=== PATIENT | female | born 1945 | race Caucasian/White ===

== ENCOUNTER → 2016-04-12 | Outpatient (CLI) | payer OTHER ==
[~2016-04-12] MED LIST: ASTN NAE; BNT10 PO; CHOL4POW PO; ESOM20CA PO; EVS60 PO; LCTX; MISC4CAP PO; MOME50SP5 NAE; NXM/40 PO; VANC5CAP PO
[2016-04-12 16:42] LABS: BASO % 0.3 %; BASO ABS # 0.01 K/uL (0-0.2); COMPLETE YES; EOS % 0.3 %; HEMATOCRIT 38.1 % (37-47); LYMPH % 37.7 %; LYMPH ABS # 1.13 K/uL (1.2-3.4); MEAN CELL VOLUME 97.9 fL (80-100); MEAN CORPUSCULAR HEMOGLOBIN 32.9 pg (25-34); MEAN CORPUSCULAR HGB CONC 33.6 g/dl (32-36); MEAN PLATELET VOLUME 9.8 fL (7.4-10.4); NEUT % 48.7 %; PLATELET COUNT 218 K/uL (130-400); RED BLOOD COUNT 3.89 M/uL (4.2-5.4)
[2016-04-12 17:08] LABS: ALT/SGPT 31 U/L (12-78); BLOOD UREA NITROGEN 20 mg/dl (7-18); BUN/CREATININE RATIO 27.8 (10-20); CALCIUM 8.5 mg/dl (8.5-10.1); CARBON DIOXIDE 27 mmol/L (21-32); CHLORIDE 101 mmol/L (98-107); CHOLESTEROL 194 mg/dl (0-200); CREATININE 0.72 mg/dl (0.60-1.20); GLUCOSE 91 mg/dl (70-99); POTASSIUM 3.6 mmol/L (3.5-5.1); SODIUM 138 mmol/L (136-145)
[2016-04-12 17:11] LABS: ALB/GLOB RATIO 1.1 (0.9-2); ALKALINE PHOSPHATASE 61 U/L (45-117); AST/SGOT 26 U/L (15-37); CHOLESTEROL/HDL RATIO 2.2; HDL CHOLESTEROL 90 mg/dl; LDL CHOLESTEROL CALCULATED 75 mg/dl; TRIGLYCERIDES 147 mg/dl (0-150); VERY LOW DENSITY LIPOPROT CALC 29 mg/dl
[2016-04-12 18:29] LABS: INFLUENZA A PCR Neg for Influ A (NEG); INFLUENZA B PCR POS for Influ B (NEG)
== END | disposition home or self-care (01) ==
LOC: C.LAB1850 16:04
PROVIDERS: ATTEND Family Medicine
DX: R68.89 Other general symptoms and signs (principal); E78.00 Pure hypercholesterolemia, unspecified

== ENCOUNTER → 2016-04-30 | Outpatient (CLI) | payer OTHER ==
[~2016-04-30] MED LIST changes: -ASTN NAE; -BNT10 PO; -CHOL4POW PO; -LCTX; -MOME50SP5 NAE; -NXM/40 PO; -VANC5CAP PO
== END | disposition home or self-care (01) ==
LOC: C.MAMM 08:22
PROVIDERS: ATTEND Family Medicine
DX: Z13.820 Encounter for screening for osteoporosis (principal); M85.851 Other specified disorders of bone density and structure, right thigh; M85.852 Other specified disorders of bone density and structure, left thigh

== ENCOUNTER → 2016-05-17 | Day surgery (SDC) | payer OTHER ==
[2016-04-26 13:43] VITALS: Ht 170.2 cm; Wt 62.3 kg
[~2016-05-17] VITALS: Ht 170.2 cm; Wt 62.3 kg
[~2016-05-17] MED LIST changes: +BUPIVACAINE 0.25% 2.5MG/ML PF 10 ML VIAL INFIL ONE; +IOPAMIDOL INJ 61% 15 ML VIAL ONE; +LIDOCAINE HCL 1% MPF 5 ML VIAL ONE
--- NOTE | 2016-05-17 13:26 | History & Physical Bridge - [place] ---
H&P Re-Evaluation Bridge Note: I have examined the patient, reviewed the History & Physical and in the interval since the performance of the History & Physical I have noted the following changes of clinical significance: No changes noted
[2016-05-17 13:47] VITALS: TEMP 36.6
--- NOTE | 2016-05-17 13:50 | Discharge Instructions ---
Discharge Instructions Date of Service May 17, 2016. Visit Reason for Visit: Sacroiliitis Discharge Discharge Diagnosis / Problem: low back pain Discharge Goals Goal(s): Decrease discomfort, Improve function Activity Recommendations Activity Limitations: resume your previous activity Anesthesia . Post Anesthesia Instructions: If you have had General Anesthesia or IV Sedation: * Do not drive today. * Resume driving when surgeon permits. * Do not make important decisions or sign legal documents today. * Call surgeon for: 1. Temperature elevations greater than 101 degrees F. 2. Uncontrollable pain. 3. Excessive bleeding. 4. Persistent nausea and vomiting. 5. Medication intolerance (nausea, vomiting or rash). * For nausea and vomiting use only clear liquids such as: tea, soda, bouillon until nausea subsides, then gradually increase diet as tolerated. * If you have any concerns or questions, call your surgeon's office. If physician is unavailable and it is an emergency, call 911 or go to the nearest emergency room. . Diet Recommendations Recommended Home Diet: resume previous diet Procedures Procedures Performed: Left Sacroiliac Joint Injection Pending Studies Studies pending at discharge: no Medical Emergencies . Who to Call and When: Medical Emergencies: If at any time you feel your situation is an emergency, please call 911 immediately. . Non-Emergent Contact Non-Emergency issues call your: Specialist . . "Provider Documentation" section prepared by Campbell Dickey.
[2016-05-17 13:58] VITALS: BP 156/84; PULSE 88; O2SAT 96
--- NOTE | 2016-05-17 14:41 | OPERATIVE REPORT ---
DATE OF OPERATION: 05/17/2016 PREOPERATIVE DIAGNOSIS: Left sacroiliitis. POSTOPERATIVE DIAGNOSIS: Same. PROCEDURE: Left sacroiliac joint injection under fluoroscopic guidance. INDICATIONS: The patient is a 70-year-old white female who has been bothered by left sacroiliitis. It is localizing to the left SI joint. She presented for second opinion and I feel that an SI joint injection will provide her with relief. Her examination was consistent with this. PHYSICAL EXAMINATION: Pleasant female seated comfortably. She has tenderness to palpation over the left SI joint. It is worse with extension. She has a positive sacral distraction maneuver, sacral compression maneuver and a Medina maneuver, all on the left. She has normal motor and sensory exam. CONSENT: Verbal and written consent was obtained from the patient. Risks and benefits were reviewed. Risks include, but are not limited to abscess and allergic reaction. The patient wishes to proceed. DESCRIPTION OF PROCEDURE: The patient was taken back to the special procedures room of the [facility], where she was maintained in a prone position. Backside was cleansed with Betadine x3 and a dry sterile dressing was applied. Fluoroscope was used to identify the left SI joint. The overlying skin was then anesthetized with 2.5 mL of lidocaine 1% with a 25-gauge 1.5-inch needle. A 25-gauge 3.5-inch spinal needle was then directed towards the SI joint and entered the joint under fluoroscopic guidance. To confirm placement, a quarter of a mL of Isovue was then injected, which demonstrated intraarticular uptake of the joint. She then underwent injection after negative aspiration of 40 mg of Depo-Medrol and 1.5 mL of bupivacaine 0.25%. Injection was well tolerated. DISPOSITION: 1. The patient is taken out into the discharge recovery area where she will be discharged home once discharge criteria have been met. 2. She will follow up in the [facility] office in 2-4 weeks. I attest to the content of the Intraoperative Record and any orders documented therein. Any exceptio ns are noted below.
== END | disposition home or self-care (01) ==
LOC: X.SURG 12:40
PROVIDERS: ATTEND Physical Medicine & Rehabilitation
DX: M46.1 Sacroiliitis, not elsewhere classified (principal); Z88.2 Allergy status to sulfonamides; Z88.5 Allergy status to narcotic agent

== ENCOUNTER → 2016-08-01 | Outpatient (CLI) | payer OTHER ==
[~2016-08-01] MED LIST changes: -BUPIVACAINE 0.25% 2.5MG/ML PF 10 ML VIAL INFIL ONE; -IOPAMIDOL INJ 61% 15 ML VIAL ONE; -LIDOCAINE HCL 1% MPF 5 ML VIAL ONE
--- NOTE | 2016-08-01 13:28 | MAMMOGRAPHY REPORT ---
BILATERAL DIGITAL SCREENING MAMMOGRAM WITH CAD: 08/01/2016 CLINICAL HISTORY: Routine screening. Patient has no complaints. TECHNIQUE: Current study was also evaluated with a Computer Aided Detection (CAD) system. Bilateral CC and MLO views were obtained. COMPARISON: Comparison is made to exams dated: 07/26/2015 mammogram, 07/20/2014 mammogram, 06/24/2012 mamm ogram, 06/19/2011 mammogram, 06/13/2010 mammogram, and 06/25/2013 mammogram - [facility] . BREAST COMPOSITION: The tissue of both breasts is heterogeneously dense, which may obscure small mas ses. FINDINGS: No suspicious masses, calcifications, or areas of architectural distortion are noted in ei ther breast. There has been no significant interval change compared to prior exams. IMPRESSION: ACR BI-RADS CATEGORY 1: NEGATIVE There is no mammographic evidence of malignancy. A 1 year screening mammogram is recommended. The pa tient will receive written notification of the results. Approximately 10% of breast cancers are not detected with mammography. A negative mammographic report should not delay biopsy if a clinically suggestive mass is present. Hyacinth Moyer M.D. /:08/01/2016 11:58:04 Sexual Assault Counselor: Pily SERRANO)(Freda), [facility] letter sent: Normal 1/2 BI-RADS Code: ACR BI-RADS Category 1: Negative
== END | disposition home or self-care (01) ==
LOC: C.MAMM 09:56
PROVIDERS: ATTEND Family Medicine
DX: Z12.31 Encounter for screening mammogram for malignant neoplasm of breast (principal)

== ENCOUNTER 2017-01-31 15:28 | Emergency (ER) | payer OTHER ==
[~2017-01-31] VITALS: Ht 167.6 cm; Wt 64.4 kg
[2017-01-31 15:35] VITALS: BP 151/81; PULSE 80; TEMP 36.5; O2SAT 98; Ht 167.6 cm; Wt 64.4 kg
[2017-01-31] MEDS ORDERED: PROPARACAINE HCL 0.5% OP SOLN 15 ML BTL OP STA (15:43)
[2017-01-31] MEDS ORDERED: IPRA0.03 (15:51)
[2017-01-31] MEDS ORDERED: PANT20TA2 PO (15:51)
[2017-01-31] MEDS ORDERED: RALO1TAB2 PO (15:51)
[2017-01-31] MEDS ORDERED: CALCTAB7 PO (15:51)
[2017-01-31] MEDS ORDERED: TRIMETHOPRIM/POLYMYXIN B OPR STA (15:57)
--- NOTE | 2017-01-31 16:04 | EMERGENCY ROOM VISIT NOTE ---
ED Visit Note First contact with patient: 15:36 CHIEF COMPLAINT: Right eye irritation HISTORY OF PRESENT ILLNESS: This 71-year-old female presents the ER with chief complaint of right eye irritation. The patient states she woke up at 4 AM and felt like there was something in her eye. The patient states it feels like it' s up underneath her upper eyelid. She denies any visual changes or eye pain. The patient denies any redness to the eye. The patient does not wear contacts. REVIEW OF SYSTEMS: 6 system review was performed and was negative unless stated otherwise in history of present illness. PMH: The patient is healthy; , hysterectomy, neck surgery, back surgery SOCIAL HISTORY: Patient lives with her boyfriend. The patient denies any tobacco use but admits to occasional alcohol use. PHYSICAL EXAM: Vital Signs: Were reviewed Reviewed Nurse's notes. GENERAL: 71- year-old white female appears in no acute distress. Mental Status: Alert and oriented 3. EYES: The pupils are round, equal, and react to light. EOMs are full. There is discharge of clear tears from the right eye without any injection. There is no foreign body visible under athe eyelid even after lid eversion. No foreign body was seen embedded in the cornea. The cornea was clear and no hyphema was seen. Fluorescein uptake was observed with ultraviolet light on the superior portion of the pupil. EMERGENCY DEPARTMENT COURSE: The fluorescein was irrigated away and Polytrim eyedrops is placed into the right eye. The patient was given the remainder of the bottle to take with her. The patient was independently evaluated by Dr. Schmidt who agree with treatment plan. The patient was discharged home in stable condition. DIAGNOSIS: Right Corneal abrasion DISCHARGE INSTRUCTIONS AND TREATMENT: Polytrim eyedrops 1 drop into the right eye every 3 hours while awake for 5-7 days. The eye should recover in about 24 to 36 hours. Return here or see an measurement and verification engineer if it is not improving in 2 days. Tylenol or ibuprofen as needed for pain. Problem List Medical Problems: (1) Diverticulosis Status: Chronic (2) Pure Hypercholesterolem Status: Chronic Current/Historical Medications Scheduled Calcium Carbonate-Vitamin D W/ (Caltrate 600 Plus), 1 TAB PO BID Ipratropium [place] (Nasal) (Ipratropium [place]), SPRAYS NA UD Raloxifene HCl (Raloxifene Hydrochloride), 60 MG PO HS Scheduled PRN Pantoprazole Sodium (Protonix), 20 MG PO DAILY PRN for ACID REFLEX Allergies Coded Allergies: Sulfa Antibiotics (Verified Allergy, Unknown, SWELLING, 05/17/16) Codeine (Verified Adverse Reaction, Unknown, SEIZURES, 05/17/16) Vital Signs Date Time Temp Pulse Resp B/P (MAP) Pulse Ox O2 Delivery O2 Flow Rate FiO2 01/31/17 15:35 36.5 80 16 151/81 98 Room Air Medications Administered Medications (Trade) Dose Ordered Sig/Theodore Route Start Time Stop Time Status Last Admin Dose Admin Proparacaine HCl (Alcaine 0.5% Oph Soln) 2 drops NOW STAT OP 01/31/17 15:43 01/31/17 15:44 DC 01/31/17 15:43 2 DROPS Departure Information Referrals Pro,Michele Hernandez M.D. (PCP) Patient Instructions My [facility]
--- NOTE | 2017-01-31 18:09 | EMERGENCY ROOM VISIT NOTE ---
ED Visit Note First contact with patient: 15:36 I have personally evaluated this patient examined her and reviewed the pertinent labs and data. I have discussed the case with Kimi Davis, the physician accountant assistant and agree with the plan. Please refer to the PA note. This patient comes in after feeling like there is something in her eye. She was found to have a corneal abrasion centrally and upper area., When the eyelid was inverted by Kimi she felt like something came out according to the patient. The sclera is not injected on my exam. She is going to be started on antibiotics. She does not wear contacts. She'll return if any new problems with the eye.
== END 2017-01-31 16:21 | disposition home or self-care (01) ==
LOC: C.EDB 15:29 → C.EDD 16:21
DX: S05.01XA Injury of conjunctiva and corneal abrasion without foreign body, right eye, initial encounter (principal); X58.XXXA Exposure to other specified factors, initial encounter; Z90.710 Acquired absence of both cervix and uterus; K57.90 Diverticulosis of intestine, part unspecified, without perforation or abscess without bleeding; E78.00 Pure hypercholesterolemia, unspecified; Z79.899 Other long term (current) drug therapy

== ENCOUNTER → 2017-02-21 | Day surgery (SDC) | payer OTHER ==
[2017-02-20 09:22] VITALS: Ht 170.2 cm; Wt 62.3 kg
[~2017-02-21] VITALS: Ht 170.2 cm; Wt 62.3 kg
[~2017-02-21] MED LIST changes: +BUPIVACAINE 0.25% 2.5MG/ML PF 10 ML VIAL ONE; +CALCTAB7 PO; -ESOM20CA PO; -EVS60 PO; +IOPAMIDOL INJ 61% 15 ML VIAL ONE; +IPRA0.03; +LIDOCAINE HCL 1% MPF 5 ML VIAL ONE; -MISC4CAP PO; +PANT20TA2 PO; +RALO1TAB2 PO
[2017-02-21 13:47] VITALS: TEMP 36.7
--- NOTE | 2017-02-21 13:51 | Discharge Instructions ---
Discharge Instructions Date of Service Feb 21, 2017. Visit Reason for Visit: Sacroiliitis Discharge Discharge Diagnosis / Problem: low back pain Discharge Goals Goal(s): Decrease discomfort, Improve function Activity Recommendations Activity Limitations: resume your previous activity Anesthesia . Post Anesthesia Instructions: If you have had General Anesthesia or IV Sedation: * Do not drive today. * Resume driving when surgeon permits. * Do not make important decisions or sign legal documents today. * Call surgeon for: 1. Temperature elevations greater than 101 degrees F. 2. Uncontrollable pain. 3. Excessive bleeding. 4. Persistent nausea and vomiting. 5. Medication intolerance (nausea, vomiting or rash). * For nausea and vomiting use only clear liquids such as: tea, soda, bouillon until nausea subsides, then gradually increase diet as tolerated. * If you have any concerns or questions, call your surgeon's office. If physician is unavailable and it is an emergency, call 911 or go to the nearest emergency room. . Diet Recommendations Recommended Home Diet: resume previous diet Procedures Procedures Performed: Right Sacroiliac Joint Injection Pending Studies Studies pending at discharge: no Medical Emergencies . Who to Call and When: Medical Emergencies: If at any time you feel your situation is an emergency, please call 911 immediately. . Non-Emergent Contact Non-Emergency issues call your: Specialist . . "Provider Documentation" section prepared by Campbell Dickey. .
[2017-02-21 13:56] VITALS: BP 108/71; PULSE 72; O2SAT 95
--- NOTE | 2017-02-21 14:15 | OPERATIVE REPORT ---
DATE OF OPERATION: 02/21/2017 PREOPERATIVE DIAGNOSIS: Right sacroiliitis. POSTOPERATIVE DIAGNOSIS: Same. PROCEDURE: Right sacroiliac joint injection under fluoroscopic guidance. INDICATIONS: The patient is a 71-year-old female who was felt to have problems of sacroiliitis on the right side. She has received an injection in the left side that was very beneficial for this pain and once the left side was eradicated, she noticed more problems on the right side. She presents today for an injection to provide her with relief of the sacroiliac generated pain. PHYSICAL EXAMINATION: Pleasant female seated comfortably. She has some point tenderness to palpation of her SI joint, which is worse with extension and she has normal motor and sensory exam of her lower extremities. CONSENT: Verbal and written consent was obtained from the patient. Risks and benefits were reviewed. Risks include, but are not limited to abscess and allergic reaction. The patient wishes to proceed. DESCRIPTION OF PROCEDURE: The patient was taken back into the special procedures room of [facility]. She was maintained in a prone position. Backside was cleansed with a Betadine x3 and a dry sterile dressing was applied. Fluoroscope was used to identify the right sacroiliac joint and the overlying skin was anesthetized with 2.5 mL of lidocaine 1% with a 25-gauge 1-1/2 inch needle. A 25-gauge 3-1/2 inch spinal needle was easily directed into the sacroiliac joint. Isovue-300 contrast 0.25 mL was injected in which showed intraarticular uptake. She then underwent injection after negative aspiration of 40 mg of Depo-Medrol and 1.5 mL of bupivacaine 0.25%. Injection was well tolerated. DISPOSITION: 1. The patient was taken out into the discharge recovery area, where she will be discharged home once discharge criteria have been met. 2. Follow up in the [facility] office in 2-4 weeks. I attest to the content of the Intraoperative Record and any orders documented therein. Any exception s are noted below.
== END | disposition home or self-care (01) ==
LOC: X.SURG 12:54
PROVIDERS: ATTEND Physical Medicine & Rehabilitation
DX: M46.1 Sacroiliitis, not elsewhere classified (principal); E78.5 Hyperlipidemia, unspecified; K21.9 Gastro-esophageal reflux disease without esophagitis; Z98.1 Arthrodesis status; Z80.3 Family history of malignant neoplasm of breast

== ENCOUNTER 2024-10-20 16:19 | Observation (INO) ==
[2024-10-20 17:05] LABS: Hematocrit (blood only) 40.4 % (37.0-47.0); Hemoglobin 13.6 g/dl (12.0-16.0); Immature Granulocytes # (auto) 0.01 K/uL (0.01-0.20); Immature Granulocytes % (auto) 0.2 %; Mean Corpuscular Hemoglobin 33.3 pg (25.0-34.0); Mean Corpuscular Volume 99.0 fL (80.0-100.0); Platelet Count 319 K/uL (130-400); RDW Standard Deviation 45.0 fL (36.4-46.3); Red Blood Count 4.08 M/uL (4.20-5.40); White Blood Count 6.46 K/ul (4.8-10.8)
[2024-10-20 17:23] LABS: Alanine Aminotransferase 12.0 U/L (7-52); Albumin Globulin Ratio 1.3 (0.9-2); Alkaline Phosphatase 64.0 U/L (34-104); Anion Gap 7.0 (3-11); Bilirubin,Total 0.5 mg/dl (0.2-1.0); Blood Urea Nitrogen 19.0 mg/dl (6-23); Calcium 9.5 mg/dl (8.6-10.3); Carbon Dioxide 29.0 mmol/L (21-32); Chloride 103.0 mmol/L (98-107); Creatinine Clr Calc Pharmacy 53.1 ml/min; Globulin 3.3 gm/dl (2.5-4.0); Glucose 99.0 mg/dl (70-99(Fasting)); Lipase 48.0 U/L (11-82); Magnesium 2.2 mg/dl (1.7-2.4); Potassium 3.7 mmol/L (3.5-5.1); Sodium 139.0 mmol/L (136-145); Total Protein 7.5 gm/dl (6.0-8.3)
--- NOTE | 2024-10-20 17:23 | XRay Report ---
Chest radiograph, one view History: Chest pain Comparison: 07/16/2024 Findings: Single AP view of the chest performed. Small focus of atelectasis at the lingula again seen. No focal consolidation or pleural effusion. No pneumothorax. The cardiomediastinal silhouette is within normal limits. Normal pulmonary vascularity. No evidence for lymphadenopathy. No visualized bony or soft tissue abnormality. Impression: Normal chest radiograph Electronically signed by Sivakumar Parson 10-20-2024 5:23 PM
--- NOTE | 2024-10-20 17:38 | Emergency Department Note ---
Impression & Plan Chest pain, Hypertension ED Provider Note ED Provider Note NAME: SERGO SUBRAMANIAN AGE:79 SEX: Female : 1945 ARRIVES VIA: Private vehicle INFORMANT: Patient ED PROVIDER(s): Priya Armenta DO CHIEF COMPLAINT: Referred by express care HPI: This is a 79-year-old female who presents to the emergency department after being referred here by express care. She had contacted her family doctor initially due to concern for intermittent chest pain over the last 6 days that seems to happen typically when she is out walking. Patient walks daily up to 4 to 5 miles. Patient states the triage nurse at her doctor's office asked that she be evaluated and she went to express care first. She states express care was concerned about her story and wanted her to have blood work done and referred her to the ER for additional evaluation. Patient states there is a family history of heart disease. She did previously have a stress test about a year ago that she states was reported to her as reassuring. No recent change in medications or diet. No recent fevers, chills, URI symptoms. She states the chest discomfort is a heaviness or pressure mostly central slightly left-sided. She denies any accompanying shortness of breath, leg swelling, or nausea. She states she noted some right upper extremity paresthesias and mild radiation of pain towards the right shoulder. She states she has no symptoms at this time. PAST MEDICAL HISTORY:See Below PAST SURGICAL HISTORY:See Below FAMILY HISTORY:See Below SOCIAL HISTORY:See Below HOME MEDICATIONS:See Below ALLERGIES:See Below VITALS:See Below PHYSICAL EXAMINATION: GENERAL: alert, well appearing, well nourished, no distress, non-toxic EYE EXAM: normal conjunctiva, PERRL and EOM's grossly intact OROPHARYNX: no exudate, no erythema, lips, buccal mucosa, and tongue normal and mucous membranes are moist NECK: supple, no nuchal rigidity, no adenopathy, non-tender LUNGS: Clear to auscultation. Normal chest wall mechanics, no w/r/r HEART: no murmurs, S1 normal and S2 normal ABDOMEN: abdomen soft, non-tender, normo-active bowel sounds, no masses, no rebound or guarding. SKIN: no rashes, petechiae, orbruising UPPER EXTREMITIES: upper extremities are grossly normal. FROM, nml pulses b/l. LOWER EXTREMITIES: No pitting edema. FROM, nml pulses b/l. NEURO EXAM: Normal sensorium, cranial nerves II-XII grossly intact, normal speech, no facial droop,nogross weakness of arms, no gross weakness of legs. Gross sensation intact. No ataxia. Vital Signs: reviewed and remarkable Differential Diagnosis: acute coronary syndrome, pericarditis, pulmonary embolus, aortic dissection, pneumonia, pneumothorax, musculoskeletal pain, shingles, GERD, GI bleed, as well as others were considered MEDICAL DECISION MAKING: This is a 79-year-old female who presents to the emergency department after being referred here by [facility] due to concern for intermittent recent chest pain. Patient is noted to be hypertensive on arrival however other vital signs are stable. Labs drawn and sent, IV established, EKG and CXR performed and interpreted at bedside, and patient placed on telemetry. Patient had no chest pain on arrival here. Initial labs reassuring. Due to advanced age and borderline D-dimer she was sent for CT angiography of the chest which was reassuring also. Repeat troponin drawn and sent and still negative. Due to likely low risk however concerning exertional component to her description of these episodes the case was discussed with on-call [facility] cardiology. They recommended inpatient evaluation for further cardiac evaluation tomorrow would be optimal. Should patient wish to go home they recommend initiation of low-dose aspirin daily and avoidance of any physical activity until such time as they can be seen in the office and undergo a stress test and/or echo at that time. After discussion at bedside, patient opted for inpatient evaluation and further cardiac evaluation. Blood pressure remained elevated while here. Case discussed with the hospitalist team for additional evaluation and mgmt. Consultation(s): 2031: Discussed with [facility] cardiology. 2056: Discussed with [facility] hospitalist team, for additional evaluation and mgmt. ER Treatment Provided: See below Diagnostics Interpreted By Me: -ECG: Normal sinus at 67, normal axis, normal intervals, inverted T waves noted in lead III only, no other acute ST/T wave changes -Cardiac Monitoring: An order was placed for continuous cardiac monitoring. The monitor shows a rate of 70 with normal sinus rhythm. -Laboratory studies: As stated above and show below. -Imaging studies: X-ray Chest: A single view study of the chest was reviewed and was negative for cardiomegaly, focal infiltrate, effusion, pulmonary edema, or wide mediastinum. 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 difficile colitis HX C DIFF Surgical History H/O meniscectomy of right knee History of colonoscopy H/O: hysterectomy S/P section HX H/O neck surgery FULL ROM History of back surgery Family History Mother Breast cancer Father Myocardial infarction Aunt Breast cancer Other No family history of adverse response to anesthesia No family history of bleeding disorder Denies family history of Ovarian cancer Prostate cancer Colorectal cancer Social History Smoking Status: Former smoker Tobacco Type: Cigarettes Age Started Using Tobacco: 19; Age Quit Using Tobacco: 24; packs per day: 0.5; Second Hand Exposure: No; Do You Dip or Chew Tobacco: No; Tobacco Cessation Education Requested by Patient: No Hx Alcohol Use: Yes Alcohol type: wine and hard liquor Hx Substance Use: No Preferred Language: Telugu Communication Ability: Effective Visual Impairment: No Limitations Hearing Ability: Normal Wrecking Supervisor Required: No Beliefs That Will Affect Care: None marital status: Life Partner Current Living Situation: Significant Other Current Living Situation Comment: home with significant other current occupational status: retired How many Children do You have: 1 How many Children do You have Comment: 1 son Other Information That Helps Us Care for You: No Feels Safe at Home: Yes Safety Concerns: Feels Safe At This Time Childhood Exposure to Second-Hand Smoke: No Diet: regular during the past year weight has: remained stable Dental Care, Regularly: Yes Physical Activity Frequency: 3-4 Times per Week Seatbelt Use: always Sunscreen Use: Yes Assistive Devices: Hearing Aid - Bilateral Allergies Allergies Allergy/AdvReac Type Severity Reaction Status Date / Time codeine Allergy Severe SEIZURES Verified 10/20/24 15:47 Sulfa (Sulfonamide Allergy Intermediate SWELLING, Verified 10/20/24 15:47 Antibiotics) breathing issue latex Allergy Mild WITH LATEX Verified 10/20/24 15:47 GLOVES USED FOR DENTAL - SORES IN MOUTH ciprofloxacin [From Cipro] AdvReac Mild c.diff Verified 10/20/24 15:47 morphine AdvReac Mild N/V, OUT Verified 10/20/24 15:47 OF BODY FEELING Home Meds Home Medications Medication Instructions Recorded Confirmed cyanocobalamin (vitamin B-12) 1,000 mcg PO HS 05/18/21 10/20/24 1,000 mcg tablet (Vitamin B-12) cholecalciferol (vitamin D3) 125 125 mcg PO DAILY 01/04/22 10/20/24 mcg (5,000 unit) capsule latanoprost 0.005 % eye drops 1 drp OPB HS 12/25/22 10/20/24 calcium carbonate (Calcium 600) 600 mg PO HS 10/20/24 10/20/24 ciclopirox 8 % topical solution 1 applic topical DAILY PRN 10/20/24 10/20/24 DIRECTED ipratropium bromide 42 mcg (0.06 2 spray intranasal TID PRN 10/20/24 10/20/24 %) nasal spray DIRECTED raloxifene 60 mg tablet (Evista) 60 mg PO HS 10/20/24 10/20/24 Previous Rx's Medication Instructions Recorded pimecrolimus 1 % topical cream 1 applic topical BID PRN Rash #30 09/27/23 grams benzonatate 100 mg capsule 100 mg PO BID PRN cough 30 days 01/22/24 #60 caps ibuprofen 600 mg tablet 600 mg PO Q6H PRN Pain #360 tabs 10/12/24 Results & Data (ED) Vital Signs Vital Signs - 24 hr 10/20/24 16:21 10/20/24 16:37 10/20/24 16:37 Temperature 36.4 C L Temperature Source Temporal Artery Scan Pulse Rate 66 69 Pulse Rate from SpO2 Sensor Respiratory Rate 18 14 Respiratory Effort / Characteristics Non-Labored Respiratory Depth Normal Respiratory Pattern Regular Blood Pressure 186/83 H 204/90 H Blood Pressure Mean 117 128 Pulse Oximetry 97 98 99 Oxygen Delivery Method Room Air Room Air Room Air Oxygen Flow Rate 0 Sepsis Recent Fever Within 48 Hours No Sepsis New/Unexplained Change in Mental Status N/A Sepsis Action Taken by Nursing No Action Required 10/20/24 16:41 10/20/24 17:24 10/20/24 17:30 Temperature Temperature Source Pulse Rate 70 64 68 Pulse Rate from SpO2 Sensor Respiratory Rate 14 19 Respiratory Effort / Characteristics Respiratory Depth Respiratory Pattern Blood Pressure 170/97 H Blood Pressure Mean 121 Pulse Oximetry 97 97 Oxygen Delivery Method Oxygen Flow Rate Sepsis Recent Fever Within 48 Hours Sepsis New/Unexplained Change in Mental Status Sepsis Action Taken by Nursing 10/20/24 17:51 10/20/24 18:46 10/20/24 19:00 Temperature Temperature Source Pulse Rate 66 73 66 Pulse Rate from SpO2 Sensor Respiratory Rate 20 18 Respiratory Effort / Characteristics Respiratory Depth Respiratory Pattern Blood Pressure 188/95 H 152/91 H 189/96 H Blood Pressure Mean 126 111 143 Pulse Oximetry 96 97 98 Oxygen Delivery Method Room Air Room Air Oxygen Flow Rate Sepsis Recent Fever Within 48 Hours Sepsis New/Unexplained Change in Mental Status Sepsis Action Taken by Nursing 10/20/24 20:00 10/20/24 20:44 10/20/24 21:03 Temperature Temperature Source Pulse Rate 68 72 68 Pulse Rate from SpO2 Sensor 68 Respiratory Rate 18 19 Respiratory Effort / Characteristics Respiratory Depth Respiratory Pattern Blood Pressure 196/97 H 184/88 H Blood Pressure Mean 130 120 Pulse Oximetry 99 97 Oxygen Delivery Method Room Air Oxygen Flow Rate Sepsis Recent Fever Within 48 Hours Sepsis New/Unexplained Change in Mental Status Sepsis Action Taken by Nursing Laboratory Data 10/20/24 16:39 10/20/24 16:39 Lab Results 10/20/24 10/20/24 Range/Units 16:39 18:48 WBC 6.46 (4.8-10.8) K/ul RBC 4.08 L (4.20-5.40) M/uL Hgb 13.6 (12.0-16.0) g/dl Hct 40.4 (37.0-47.0) % MCV 99.0 (80.0-100.0) fL MCH 33.3 (25.0-34.0) pg MCHC 33.7 (32.0-36.0) g/dL RDW Std Deviation 45.0 (36.4-46.3) fL RDW Coeff of Kyler 12.3 (11.5-14.5) % Plt Count 319 (130-400) K/uL MPV 9.4 (9.4-12.4) fL Immature Gran % (Auto) 0.2 % Neut % (Auto) 56.0 % Lymph % (Auto) 30.5 % [place] % (Auto) 8.4 % Eos % (Auto) 4.0 % Baso % (Auto) 0.9 % Neut # (Auto) 3.62 (1.40-6.50) K/uL Lymph # (Auto) 1.97 (1.20-3.40) K/uL [place] # (Auto) 0.54 (0.11-0.59) K/uL Eos # (Auto) 0.26 (0.00-0.50) K/uL Baso # (Auto) 0.06 (0.00-0.20) K/uL Immature Gran # (Auto) 0.01 (0.01-0.20) K/uL PT 10.2 (9.0-12.0) Seconds INR 0.9 (0.9-1.1) D-Dimer 500 (0-500) ug/L FEU Sodium 139 (136-145) mmol/L Potassium 3.7 (3.5-5.1) mmol/L Chloride 103 (98-107) mmol/L Carbon Dioxide 29 (21-32) mmol/L Anion Gap 7 (3-11) BUN 19 (6-23) mg/dl Creatinine 0.70 (0.6-1.2) mg/dl Est Cr Clr Drug Dosing 53.1 ml/min eGFR 88.47 BUN/Creatinine Ratio 27.1 H (10-20) Glucose 99 (70-99(Fasting)) mg/dl Calcium 9.5 (8.6-10.3) mg/dl Magnesium 2.2 (1.7-2.4) mg/dl Total Bilirubin 0.5 (0.2-1.0) mg/dl AST 20 (13-39) U/L ALT 12 (7-52) U/L Alkaline Phosphatase 64 (34-104) U/L Troponin I High Sens 3.8 4.6 (0-14) pg/ml Total Protein 7.5 (6.0-8.3) gm/dl Albumin 4.2 (3.4-5.0) gm/dl Globulin 3.3 (2.5-4.0) gm/dl Albumin/Globulin Ratio 1.3 (0.9-2) Lipase 48 (11-82) U/L Administered Medications Discontinued Medications Sodium Chloride (Nss) 1,000 mls @ 125 mls/hr IV .Q8H NAYELY Stop: 10/23/24 17:59 Last Infusion: 10/21/24 00:06 Dose: Infused Documented By: Admin: 10/20/24 18:26 Dose: 125 mls/hr Documented By: ANT Ioversol (Optiray 320 100ml) 118 ml IV ONCE ONE Stop: 10/20/24 18:20 Last Admin: 10/20/24 18:20 Dose: 118 ml Documented By: ANATOLIY Imaging Data Radiologist's Impression: Chest X-Ray 10/20/24 16:55 Chest radiograph, one view History: Chest pain Comparison: 07/16/2024 Findings: Single AP view of the chest performed. Small focus of atelectasis at the lingula again seen. No focal consolidation or pleural effusion. No pneumothorax. The cardiomediastinal silhouette is within normal limits. Normal pulmonary vascularity. No evidence for lymphadenopathy. No visualized bony or soft tissue abnormality. Impression: Normal chest radiograph Electronically signed by Sivakumar Parson 10-20-2024 5:23 PM Chest CTA 10/20/24 17:47 CT pulmonary angiogram with IV contrast History: PE COMPARISON: None TECHNIQUE: CT angiography of the chest was performed without IV contrast followed by IV contrast, including 3D post processing CTA image reconstruction. Dose reduction techniques were achieved by using automatic exposure control and/or adjustment of mA and/or kV according to patient size and/or use of iterative reconstruction technique. FINDINGS: Diagnostic quality: Adequate There is no evidence for pulmonary embolism. The heart is not enlarged. There is no pericardial effusion. There are no abnormally enlarged hilar or mediastinal lymph nodes. The central tracheobronchial tree is clear. There is mosaic attenuation of the lung parenchyma. No consolidation. Few thin bandlike areas of atelectasis in the mid and lower lung regions. There is no pleural effusion. Limited visualized upper abdomen. No destructive osseous changes are seen. IMPRESSION: No evidence for pulmonary embolism. 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 Electronically signed by Sivakumar Parson 10-20-2024 6:33 PM Discharge Plan Visit Data Chief Complaint: Cardiac Assessment Stated Complaint: CARDIO ED Provider: Priya Armenta Discharge Problem: Chest pain, Hypertension Patient Disposition: Admitted As Inpatient Condition: Fair Discharge Instructions Interventions: ED Discharge Assessment Last Done: 10/20/24 23:20
[2024-10-20 17:46] LABS: INR 0.9 (0.9-1.1); Prothrombin Time 10.2 Seconds (9.0-12.0)
[2024-10-20] MEDS: OPTIRAY 320 100ml IV ONE (18:20)
[2024-10-20] MEDS: SODIUM CHLORIDE 0.9% 1,000 ML IV SCH (18:26)
--- NOTE | 2024-10-20 18:34 | CT Scan Report ---
CT pulmonary angiogram with IV contrast History: PE COMPARISON: None TECHNIQUE: CT angiography of the chest was performed without IV contrast followed by IV contrast, including 3D post processing CTA image reconstruction. Dose reduction techniques were achieved by using automatic exposure control and/or adjustment of mA and/or kV according to patient size and/or use of iterative reconstruction technique. FINDINGS: Diagnostic quality: Adequate There is no evidence for pulmonary embolism. The heart is not enlarged. There is no pericardial effusion. There are no abnormally enlarged hilar or mediastinal lymph nodes. The central tracheobronchial tree is clear. There is mosaic attenuation of the lung parenchyma. No consolidation. Few thin bandlike areas of atelectasis in the mid and lower lung regions. There is no pleural effusion. Limited visualized upper abdomen. No destructive osseous changes are seen. IMPRESSION: No evidence for pulmonary embolism. 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 Electronically signed by Sivakumar Parson 10-20-2024 6:33 PM
--- NOTE | 2024-10-20 21:09 | History & Physical Report ---
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 ED evaluation reveals normal EKG with WNL troponin x 2, negative chest CTA for PE, and no additional abnormalities. Patient has been hypertensive throughout her ED course, no antihypertensives required up until point of admission. No hypertensive at home. Patient will be admitted for further workup of exertional chest pain with plans for stress echocardiogram in the morning. #Exertional chest pain No prior cardiac history but significant past FMHx of her father passing from sudden cardiac arrest and her brother who underwent open heart surgery; No prior history of angina or exertional symptoms. Had a stress echo ~ 1 year ago per patient which she believes was normal. Pt to undergo cardiac stress testing for further evaluation of sudden symptom onset. - CBC without leukocytosis and with stable H&H; D-dimer 500 - CBC am - Troponin 3.8, 4.6 on repeat - trend x 2 - EKG NSR, no ischemic changes - monitor on tele - CXR WNL - Chest CTA no PE, mosaic attenuation of lungs - ASA 81mg daily - Stress echo am - Cardiology consulted - appreciate input + recs #HTN Not on antihypertensive at baseline, reports taking blood pressures at home with systolics into the 130s. Suspect may be impacted by emotional component of being in hospital as she states that she keeps checking it. No present chest pain, headache, or vision changes. Will continue to monitor. Pressures have come down to 160s SBP after initial evaluation and re-evaluation, will continue to monitor and add prn medications as appropriate. - Troponin 3.8, 4.6 on repeat, will continue to trend - Chest CTA negative - EKG NSR, no ischemic findings #OP- Raloxifene - continue #Vitamin B12 deficiency- Vit B12 supp. - continue #Ocular- Latanoprost drops - continue Dispo: Obs, med/tele VTE Prophylaxis: SCDs This document was dictated utilizing Infrascale. Please excuse any grammatical errors that may be secondary to use of this software. 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 Patient reports that she walks approximately 2 miles, 4-5 times a week at baseline and has never had symptoms with such until approximately 6 days ago. Patient reports approximately 6 days ago she was on a "strolling tour" referring to her exercise of walking when she started to have what she refers to as severe indigestion in the middle of her chest. She states that this lasted for approximately 15 to 20 minutes and then was resolved whenever she sat for lunch and started to drink water. When she got back up to walk again, the symptoms did not return. Approximately 2 to 3 days CAR REPOSSESSOR she was walking again in the morning at a very comfortable pace, and did not feel that she was overexerting herself. She again developed indigestion in the middle of her chest that seem to resolve even whenever she continued to exert herself minimally. The morning of arrival, she was walking once more and after about 1 mile in, she started to have the return of symptoms in the center of her chest with an onset of "tingling in her fingertips" which was more significant on the right side than the left, but was bilateral. She denies having any diaphoresis, shortness of breath, or dizziness throughout this episode. No nausea or vomiting. She states she has never had this happen before and since it was the new onset and abnormal for her, she decided to call her PCP recommended going to the urgent care. Urgent care then recommended that the patient be further evaluated in the ED for her new onset of symptoms. She does occasionally have dizziness when standing too quickly but this is able to be resolved after pausing briefly. She admits to motion sickness as well. Patient has no current symptoms and does not experience any symptoms at rest. She did have a stress test approximately 1 year ago given her significant family history for cardiac disease. States that her father, at the age of 6868 years old, was biking and then that evening of sudden cardiac arrest. Her brother who is younger than her also has a history of open heart surgery approximately 1 year ago. She has no cardiac history, no history of HTN, and is not on antihypertensives. Patient states she is cautious with what she eats and does not have a history of GERD. Denies palpitations, cough, abdominal pain, N/V/D/C, fever/chills, URI symptoms, weakness, syncope, or falls. Patient does not smoke. ED evaluation reveals CBC without leukocytosis, stable H&H; PT/INR WNL; D-dimer 500; CMP BUN/creatinine ratio 27.1; troponin 3.8, 4.6 on repeat; CXR WNL; chest CTA no PE, mosaic attenuation of the lungs suggesting small airway or small vessel disease such as bronchiolitis obliterans; EKG NSR at 67 bpm.; Provided with 1L NSS in ED. Please see Dr. Huber's attestation for adjustments/additions to treatment plan. Allergies Allergy/AdvReac Type Severity Reaction Status Date / Time codeine Allergy Severe SEIZURES Verified 10/20/24 15:47 Sulfa (Sulfonamide Allergy Intermediate SWELLING, Verified 10/20/24 15:47 Antibiotics) breathing issue latex Allergy Mild WITH LATEX Verified 10/20/24 15:47 GLOVES USED FOR DENTAL - SORES IN MOUTH ciprofloxacin [From Cipro] AdvReac Mild c.diff Verified 10/20/24 15:47 morphine AdvReac Mild N/V, OUT Verified 10/20/24 15:47 OF BODY FEELING Home Medications Medication Instructions Recorded Confirmed Type cyanocobalamin (vitamin B-12) 1,000 mcg PO HS 05/18/21 10/20/24 History 1,000 mcg tablet (Vitamin B-12) cholecalciferol (vitamin D3) 125 125 mcg PO DAILY 01/04/22 10/20/24 History mcg (5,000 unit) capsule latanoprost 0.005 % eye drops 1 drp OPB HS 12/25/22 10/20/24 History pimecrolimus 1 % topical cream 1 applic topical BID PRN Rash #30 09/27/23 10/20/24 Rx grams benzonatate 100 mg capsule 100 mg PO BID PRN cough 30 days 01/22/24 10/20/24 Rx #60 caps ibuprofen 600 mg tablet 600 mg PO Q6H PRN Pain #360 tabs 10/12/24 10/20/24 Rx calcium carbonate (Calcium 600) 600 mg PO HS 10/20/24 10/20/24 History ciclopirox 8 % topical solution 1 applic topical DAILY PRN 10/20/24 10/20/24 History DIRECTED ipratropium bromide 42 mcg (0.06 2 spray intranasal TID PRN 10/20/24 10/20/24 History %) nasal spray DIRECTED raloxifene 60 mg tablet (Evista) 60 mg PO HS 10/20/24 10/20/24 History Past Med/Surg History Problem List Exertional chest pain Hypertension (Acute) Chest pain (Acute) Chronic cough Vasomotor rhinitis Environmental allergies Tinnitus, bilateral Episodic recurrent vertigo Sensorineural hearing loss (SNHL) of left ear with restricted hearing of right ear Fatigue Dehydration, mild (Acute 02/28/14) Recurrent UTI History of basal cell carcinoma Actinic keratosis Trigger finger Left shoulder pain Status post trigger finger release Adenomatous polyp of colon Anxiety GERD without esophagitis Hypercholesterolemia Lumbar degenerative disc disease Need for hepatitis C screening test Osteopenia Sacroiliitis Vertigo Vitamin B12 deficiency Allergic rhinitis Insomnia Medical History Dysfunction of eustachian tube Chronic sinusitis Nausea Low vitamin B12 level Nocturnal cough C. 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 difficile colitis HX C DIFF Surgical History H/O meniscectomy of right knee History of colonoscopy H/O: hysterectomy S/P section HX H/O neck surgery FULL ROM History of back surgery Family History Mother Breast cancer Father Myocardial infarction Aunt Breast cancer Other No family history of adverse response to anesthesia No family history of bleeding disorder Denies family history of Ovarian cancer Prostate cancer Colorectal cancer Social History Smoking Status: Former smoker Tobacco Type: Cigarettes Age Started Using Tobacco: 19; Age Quit Using Tobacco: 24; packs per day: 0.5; Second Hand Exposure: No; Do You Dip or Chew Tobacco: No; Tobacco Cessation Education Requested by Patient: No Hx Alcohol Use: Yes Alcohol type: wine and hard liquor Hx Substance Use: No Preferred Language: Monegasque Communication Ability: Effective Visual Impairment: No Limitations Hearing Ability: Normal Occupational Therapy Director Required: No Beliefs That Will Affect Care: None marital status: Life Partner Current Living Situation: Significant Other Current Living Situation Comment: home with significant other current occupational status: retired How many Children do You have: 1 How many Children do You have Comment: 1 son Other Information That Helps Us Care for You: No Feels Safe at Home: Yes Safety Concerns: Feels Safe At This Time Childhood Exposure to Second-Hand Smoke: No Diet: regular during the past year weight has: remained stable Dental Care, Regularly: Yes Physical Activity Frequency: 3-4 Times per Week Seatbelt Use: always Sunscreen Use: Yes Assistive Devices: Hearing Aid - Bilateral Review of Systems Review of Systems: All systems reviewed & are unremarkable except as noted in Subjective Physical Exam Physical Exam: General: No acute distress, hypertensive (180s over 90s) Skin: Warm and dry Head: Normocephalic, atraumatic Eyes: PERRL, conjunctivae clear, sclera non-icteric ENT: External ear and ear canal without swelling; nose atraumatic; good dentition, tongue normal appearance, pharynx normal Neck: Supple, no LAD Cardio: RRR, no M/G/R, S1 and S2 normal Resp: No respiratory distress, Lungs CTA in all lobes bilaterally, no wheezes, rales, or rhonchi Abdomen: Soft, symmetric, nontender; No masses or hepatosplenomegaly; Bowel sounds normoactive MSK: No deformities; pulses palpable and equal; no edema. Neuro: Awake, alert; Sensation intact bilaterally; CN grossly intact Psych: Appropriate mood and affect; good judgement and insight. Results & Data Results & Data Vital Signs (Past 12 Hours) Vital Signs Temp Pulse Resp BP Pulse Ox O2 Del Method O2 Flow Rate 10/20/24 20:44 72 10/20/24 20:00 68 18 196/97 H 99 Room Air 10/20/24 19:00 66 18 189/96 H 98 Room Air 10/20/24 18:46 73 152/91 H 97 Room Air 10/20/24 17:51 66 20 188/95 H 96 10/20/24 17:30 68 19 170/97 H 97 10/20/24 17:24 64 14 97 10/20/24 16:41 70 10/20/24 16:37 69 14 204/90 H 99 Room Air 10/20/24 16:37 98 Room Air 0 10/20/24 16:21 36.4 C L 66 18 186/83 H 97 Room Air Laboratory Results 10/20/24 10/20/24 18:48 16:39 WBC 6.46 RBC 4.08 L Hgb 13.6 Hct 40.4 MCV 99.0 MCH 33.3 MCHC 33.7 RDW Std Deviation 45.0 RDW Coeff of Kyler 12.3 Plt Count 319 MPV 9.4 Immature Gran % (Auto) 0.2 Neut % (Auto) 56.0 Lymph % (Auto) 30.5 [place] % (Auto) 8.4 Eos % (Auto) 4.0 Baso % (Auto) 0.9 Neut # (Auto) 3.62 Lymph # (Auto) 1.97 [place] # (Auto) 0.54 Eos # (Auto) 0.26 Baso # (Auto) 0.06 Immature Gran # (Auto) 0.01 PT 10.2 INR 0.9 D-Dimer 500 Sodium 139 Potassium 3.7 Chloride 103 Carbon Dioxide 29 Anion Gap 7 BUN 19 Creatinine 0.70 Est Cr Clr Drug Dosing 53.1 eGFR 88.47 BUN/Creatinine Ratio 27.1 H Glucose 99 Calcium 9.5 Magnesium 2.2 Total Bilirubin 0.5 AST 20 ALT 12 Alkaline Phosphatase 64 Troponin I High Sens 4.6 3.8 Total Protein 7.5 Albumin 4.2 Globulin 3.3 Albumin/Globulin Ratio 1.3 Lipase 48 Diagnostic Findings Chest X-Ray 10/20/24 16:55 Chest radiograph, one view History: Chest pain Comparison: 07/16/2024 Findings: Single AP view of the chest performed. Small focus of atelectasis at the lingula again seen. No focal consolidation or pleural effusion. No pneumothorax. The cardiomediastinal silhouette is within normal limits. Normal pulmonary vascularity. No evidence for lymphadenopathy. No visualized bony or soft tissue abnormality. Impression: Normal chest radiograph Electronically signed by Sivakumar Parson 10-20-2024 5:23 PM Chest CTA 10/20/24 17:47 CT pulmonary angiogram with IV contrast History: PE COMPARISON: None TECHNIQUE: CT angiography of the chest was performed without IV contrast followed by IV contrast, including 3D post processing CTA image reconstruction. Dose reduction techniques were achieved by using automatic exposure control and/or adjustment of mA and/or kV according to patient size and/or use of iterative reconstruction technique. FINDINGS: Diagnostic quality: Adequate There is no evidence for pulmonary embolism. The heart is not enlarged. There is no pericardial effusion. There are no abnormally enlarged hilar or mediastinal lymph nodes. The central tracheobronchial tree is clear. There is mosaic attenuation of the lung parenchyma. No consolidation. Few thin bandlike areas of atelectasis in the mid and lower lung regions. There is no pleural effusion. Limited visualized upper abdomen. No destructive osseous changes are seen. IMPRESSION: No evidence for pulmonary embolism. 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 Electronically signed by Sivakumar Parson 10-20-2024 6:33 PM Medications Administered 1L NSS ECG Additional Comments: NSR 67 bpm, GA 152, QRS 76, QT/QTc 4 2/424, PRT -26/-14/-13 Code Status & VTE Plan Code Status Full Supervising Physician Co-Signing Physician Notes Patient seen and examined, chart reviewed, case discussed with BLAZE Villanueva and I agree with the assessment and plan as above. 79yo female presenting with exertional chest pain. Family history of CAD. No personal history of CAD. Exam unremarkable with exception of elevated blood pressure. Patient with no history of HTN No chest pain currently +S1/S2, regular, no m/r/g 2+ pulses, no edema Labs and images reviewed Assessment/Plan -Stress testing ordered -Cardiology consultation appreciated -Remainder as above PG Care Time/CCT Total # of Minutes Spent Total Time Spent with Patient: Total time spent is greater than 50% in coordination of care (as documented) at patient's floor/unit and/or counseling patient: Coding Level of Care Code 11639 INT INP/OBS CARE 3/75MIN Diagnoses Exertional chest pain R07.9 Hypertension I10
[2024-10-20] MEDS ORDERED: POLYETHYLENE (MIRALAX) 17 GM PACK PO PRN (23:56)
[2024-10-20] MEDS ORDERED: ACETAMINOPHEN 325 MG TAB PO PRN (23:56)
[2024-10-20] MEDS ORDERED: ONDANSETRON INJ 2 MG/ML 2 ML VIAL IV PRN (23:56)
[2024-10-20] MEDS ORDERED: MELATONIN 3 MG TAB PO PRN (23:56)
[2024-10-20] MEDS ORDERED: ALUMINUM/MAGNESIUM SUSP 30 ML UDC PO PRN (23:56)
[2024-10-21 07:30] LABS: Hematocrit (blood only) 37.7 % (37.0-47.0); Hemoglobin 12.9 g/dl (12.0-16.0); Mean Corpuscular Hemoglobin 33.6 pg (25.0-34.0); Mean Corpuscular Volume 98.2 fL (80.0-100.0); Platelet Count 293 K/uL (130-400); RDW Standard Deviation 43.8 fL (36.4-46.3); Red Blood Count 3.84 M/uL (4.20-5.40); White Blood Count 5.38 K/ul (4.8-10.8)
[2024-10-21] MEDS: ASPIRIN 81 MG ECTAB PO SCH (08:33)
--- NOTE | 2024-10-21 08:45 | Cardiology Consultation ---
Date of Consultation October 21, 2024 Assessment & Plan (1) Angina pectoris, crescendo: (2) Hypertension: (3) Hypercholesterolemia: (4) Family history of premature CAD: (5) Early onset menopause: Plan Because of her multiple cardiovascular risk factors including her surgical menopause at age 41 as well as her premature family history of coronary artery disease I recommended that she undergo catheterization. I did review the CTA that she had done yesterday which was negative for pulmonary embolus. In the area of the proximal LAD there is an area of some calcification which is another reason why I am recommending that she have the diagnostic cath given the recent escalation of the symptoms. We could do another stress test however if this is abnormal I would still recommend catheterization. I think definitive diagnosis given her multiple risk factors is most appropriate. In addition if she does have coronary disease she needs to be on a statin. She also needs to be on blood pressure medications. I started her on aspirin as well as metoprolol. I will review the case with Dr. Yarbrough to see if he is able to do the catheterization on her later today or in the morning. Thank you for allowing me to participate in her care. I will follow-up after the cath. History of Present Illness Reason for Consultation: Recurrent chest pain prior normal stress echo Attending Physician: Myra Sánchez MD History of Present Illness Vicki Hernandez is a very nice 79-year-old woman with a family history of premature coronary disease in both her father as well as her brother who underwent a stress echo last year to evaluate the possibility of coronary disease and that stress echo was normal. Her exercise tolerance was fairly limited and she was only able to walk about 4 minutes. That being said, the stress EKG was normal and the echo portion of her stress test was also normal. She now presents with a 1 week history of exertional chest discomfort and has had 3 episodes in the last week. She describes this discomfort as an indigestion feeling. The first time it happened 7 days ago it was what she described as severe lasted about 30 minutes the first 15 was when she mostly had the chest discomfort and then followed by the indigestion. She did not seek medical attention at the time. She is hypertensive has hypercholesterolemia and given her premature family history of coronary disease the recent increase and new onset of this symptom I think warrants a diagnostic catheterization. I have reviewed this with her and she was presented with the option of repeat stress testing versus catheterization and she would also prefer to move forward with catheterization. Her EKG initially done here did not show changes however she was pretty much pain-free by the time she was in the ER. Her repeat cardiac enzymes were also unremarkable. Cholesterols are high the total is 239 LDL is 118 HDL was also high at approximately 100. Her recent blood pressures have been elevated although she reports when she checks her pressures at home they are mostly normal. I would also mention that last year when she had the stress test she was quite hypertensive during the test. Allergies Allergy/AdvReac Type Severity Reaction Status Date / Time codeine Allergy Severe SEIZURES Verified 10/20/24 15:47 Sulfa (Sulfonamide Allergy Intermediate SWELLING, Verified 10/20/24 15:47 Antibiotics) breathing issue latex Allergy Mild WITH LATEX Verified 10/20/24 15:47 GLOVES USED FOR DENTAL - SORES IN MOUTH ciprofloxacin [From Cipro] AdvReac Mild c.diff Verified 10/20/24 15:47 morphine AdvReac Mild N/V, OUT Verified 10/20/24 15:47 OF BODY FEELING Home Medications Medication Instructions Recorded Confirmed Type cyanocobalamin (vitamin B-12) 1,000 mcg PO HS 05/18/21 10/20/24 History 1,000 mcg tablet (Vitamin B-12) cholecalciferol (vitamin D3) 125 125 mcg PO DAILY 01/04/22 10/20/24 History mcg (5,000 unit) capsule latanoprost 0.005 % eye drops 1 drp OPB HS 12/25/22 10/20/24 History pimecrolimus 1 % topical cream 1 applic topical BID PRN Rash #30 09/27/23 10/20/24 Rx grams benzonatate 100 mg capsule 100 mg PO BID PRN cough 30 days 01/22/24 10/20/24 Rx #60 caps ibuprofen 600 mg tablet 600 mg PO Q6H PRN Pain #360 tabs 10/12/24 10/20/24 Rx calcium carbonate (Calcium 600) 600 mg PO HS 10/20/24 10/20/24 History ciclopirox 8 % topical solution 1 applic topical DAILY PRN 10/20/24 10/20/24 History DIRECTED ipratropium bromide 42 mcg (0.06 2 spray intranasal TID PRN 10/20/24 10/20/24 History %) nasal spray DIRECTED raloxifene 60 mg tablet (Evista) 60 mg PO HS 10/20/24 10/20/24 History Patient History Medical History Dysfunction of eustachian tube Chronic sinusitis Nausea Low vitamin B12 level Nocturnal cough C. 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 difficile colitis HX C DIFF Surgical History H/O meniscectomy of right knee History of colonoscopy H/O: hysterectomy S/P section HX H/O neck surgery FULL ROM History of back surgery Family History Mother Breast cancer Father Myocardial infarction Aunt Breast cancer Other No family history of adverse response to anesthesia No family history of bleeding disorder Denies family history of Ovarian cancer Prostate cancer Colorectal cancer Social History Smoking Status: Former smoker Tobacco Type: Cigarettes Age Started Using Tobacco: 19; Age Quit Using Tobacco: 24; packs per day: 0.5; Second Hand Exposure: No; Do You Dip or Chew Tobacco: No; Tobacco Cessation Education Requested by Patient: No Hx Alcohol Use: Yes Alcohol type: wine and hard liquor Hx Substance Use: No Preferred Language: Armenian Communication Ability: Effective Visual Impairment: No Limitations Hearing Ability: Normal Abrasive Mixer Required: No Beliefs That Will Affect Care: None marital status: Life Partner Current Living Situation: Significant Other Current Living Situation Comment: home with significant other current occupational status: retired How many Children do You have: 1 How many Children do You have Comment: 1 son Other Information That Helps Us Care for You: No Feels Safe at Home: Yes Safety Concerns: Feels Safe At This Time Childhood Exposure to Second-Hand Smoke: No Diet: regular during the past year weight has: remained stable Dental Care, Regularly: Yes Physical Activity Frequency: 3-4 Times per Week Seatbelt Use: always Sunscreen Use: Yes Assistive Devices: None Review of Systems Review of Systems: All systems reviewed & are unremarkable except as noted in HPI & below Physical Exam Physical Exam: AAO x 3 in NAD Respiratory: normal respiratory effort, lungs clear to auscultation Cardiovascular: RRR, no murmur, no edema Results & Data Vital Signs (Past 12 Hours) Vital Signs Temp Pulse Pulse Resp BP BP Pulse Ox 10/21/24 07:37 36.8 C 59 L 18 160/78 H 97 10/21/24 07:02 59 L 10/21/24 02:43 36.4 C L 59 L 16 161/82 H 96 10/21/24 00:54 71 10/20/24 23:56 65 14 180/82 H 96 10/20/24 23:56 10/20/24 23:20 36.7 C 59 L 18 94 10/20/24 23:00 70 17 175/84 H 95 10/20/24 22:30 71 16 158/83 H 95 10/20/24 21:03 68 19 184/88 H 97 Pulse Ox O2 Del Method O2 Del Method 10/21/24 07:37 Room Air 10/21/24 07:02 10/21/24 02:43 Room Air 10/21/24 00:54 10/20/24 23:56 Room Air 10/20/24 23:56 97 Room Air 10/20/24 23:20 Room Air 10/20/24 23:00 Room Air 10/20/24 22:30 Room Air 10/20/24 21:03 Laboratory Results Abnormal lab results 10/20/24 10/21/24 Range/Units 16:39 06:43 RBC 4.08 L 3.84 L (4.20-5.40) M/uL BUN/Creatinine Ratio 27.1 H (10-20) Medications Administered Current Inpatient Medications Acetaminophen (Acetaminophen 325 Mg Tab) 650 mg PO Q4H PRN PRN Reason: Pain or Fever Stop: 11/19/24 23:55 Al Hydrox/Mg Hydrox/Simethicone (Aluminum/Magnesium Susp 30 Ml Udc) 15 ml PO Q4H PRN PRN Reason: Dyspepsia Stop: 11/19/24 23:55 Aspirin (Aspirin 81 Mg Ectab) 81 mg PO QAM [facility] Stop: 11/20/24 08:59 Last Admin: 10/21/24 08:33 Dose: 81 mg Melatonin (Melatonin 3 Mg Tab) 3 mg PO HS PRN PRN Reason: Sleep Stop: 11/19/24 23:55 Ondansetron HCl (Ondansetron Inj 2 Mg/Ml 2 Ml Vial) 4 mg IV Q6H PRN PRN Reason: Nausea Stop: 11/19/24 23:55 Polyethylene Glycol (Polyethylene (Miralax) 17 Gm Pack) 17 gm PO DAILY PRN PRN Reason: Constipation Stop: 11/19/24 23:55 ECG Additional Comments: NSR no acute changes low voltage
[2024-10-21] MEDS: METOPROLOL SUCC 25MG EXT REL TAB PO SCH (11:21)
--- NOTE | 2024-10-21 12:47 | Electrocardiogram Report ---
Test Reason : Blood Pressure : */* mmHG Vent. Rate : 67 BPM Atrial Rate : 67 BPM P-R Int : 152 ms QRS Dur : 76 ms QT Int : 402 ms P-R-T Axes : -26 -14 -13 degrees QTcB Int : 424 ms Normal sinus rhythm possible Inferior infarct , age undetermined Abnormal ECG When compared with ECG of 09-Sep-2021 08:49, Inverted T waves have replaced nonspecific T wave abnormality in Inferior leads Nonspecific T wave abnormality no longer evident in Anterior leads Confirmed by Sivakumar Art ([id number]) on 10/21/2024 12:47:26 PM Referred By: REFERRED SELF Confirmed By: Sivakumar Art
--- NOTE | 2024-10-21 13:34 | Pre Anesthesia Assessment ---
Date of Service October 21, 2024 Pre Sedation Assessment Vital Signs Temp Pulse Pulse Pulse Resp BP BP 10/21/24 12:27 60 14 160/80 H 10/21/24 07:37 98.2 F 59 L 18 160/78 H 10/21/24 07:02 59 L 10/21/24 02:43 97.5 F L 59 L 16 161/82 H 10/21/24 00:54 71 10/20/24 23:56 65 14 180/82 H 10/20/24 23:56 10/20/24 23:20 98.1 F 59 L 18 10/20/24 23:00 70 17 175/84 H 10/20/24 22:30 71 16 158/83 H 10/20/24 21:03 68 19 184/88 H 10/20/24 20:44 72 10/20/24 20:00 68 18 196/97 H 10/20/24 19:00 66 18 189/96 H 10/20/24 18:46 73 152/91 H 10/20/24 17:51 66 20 188/95 H 10/20/24 17:30 68 19 170/97 H 10/20/24 17:24 64 14 10/20/24 16:41 70 10/20/24 16:37 69 14 204/90 H 10/20/24 16:37 10/20/24 16:21 97.5 F L 66 18 186/83 H Pulse Ox Pulse Ox O2 Del Method O2 Del Method O2 Flow Rate 10/21/24 12:27 95 Room Air 10/21/24 07:37 97 Room Air 10/21/24 07:02 10/21/24 02:43 96 Room Air 10/21/24 00:54 10/20/24 23:56 96 Room Air 10/20/24 23:56 97 Room Air 10/20/24 23:20 94 Room Air 10/20/24 23:00 95 Room Air 10/20/24 22:30 95 Room Air 10/20/24 21:03 97 10/20/24 20:44 10/20/24 20:00 99 Room Air 10/20/24 19:00 98 Room Air 10/20/24 18:46 97 Room Air 10/20/24 17:51 96 10/20/24 17:30 97 10/20/24 17:24 97 10/20/24 16:41 10/20/24 16:37 99 Room Air 10/20/24 16:37 98 Room Air 0 10/20/24 16:21 97 Room Air Cardiovascular + regular rate Respiratory + respiratory effort normal Pre-Sedation Airway Assessment Smoking Status: Former smoker Hx Sleep Apnea: No Hx Difficult Intubation: No Short, Thick Neck: No Thyromental Distance: > or= 3.5 Finger Breadths Oral Cavity: + WNL Mallampati Class: II ASA: ASA2 NPO Status Date of Last Intake of Fluids: 10/21/24 Time of Last Intake of Fluids: 08:00 Date of Last Intake of Solid Food: 10/21/24 Time of Last Intake of Solid Foods: 08:30 Procedure Planning Contraindications for Sedation: none Current Medications Reviewed: Yes Notes The planned sedation has been discussed with the patient. Informed Consent was obtained. I have identified the patient, determined the appropriateness of sedation and have assessed the patient immediately prior to the procedure. All medicine(s) and interventions are by my order.
--- NOTE | 2024-10-21 15:25 | Hospitalist Progress Note ---
Date of Service October 21, 2024 Assessment & Plan (1) Exertional chest pain: (2) Hypertension: Plan 79-year-old female PMHx GERD, insomnia, DJD of lumbar spine, OP, hyperlipidemia, vitamin B12 deficiency, and adenomatous polyp of colon presenting for exertional chest pain starting 6 days [employer]ABLE [employer]OL [employer]. ED evaluation reveals normal EKG with WNL troponin x 2, negative chest CTA for PE, and no additional abnormalities. Patient will be admitted for further workup of exertional chest pain #Exertional chest pain No prior cardiac history but significant past FMHx of her father passing from sudden cardiac arrest and her brother who underwent open heart surgery; No prior history of angina or exertional symptoms. Had a stress echo ~ 1 year ago per patient which she believes was normal.CBC without leukocytosis and with stable H&H; D-dimer 500 Troponin negative x 4 - EKG NSR, no ischemic changes - monitor on tele - ASA 81mg daily - Cardiology consulted - plan for cath today #HTN Not on antihypertensive at baseline, reports taking blood pressures at home with systolics into the 130s. Suspect may be impacted by emotional component of being in hospital. No present chest pain, headache, or vision changes. Started on metoprolol per cardiology #OP- Raloxifene - continue #Vitamin B12 deficiency- Vit B12 supp. - continue #Ocular- Latanoprost drops - continue Dispo: pending cath results VTE Prophylaxis: SCDs Admission and Anticipated Discharge Date Admission Date: October 20, 2024 Subjective patient seen sitting up in the chair. no chest pain since arrival asking to walk the halls Tele SB/SR 50-60s Review of Systems Review of Systems: All systems reviewed & are unremarkable except as noted in Subjective Physical Exam Physical Exam: General: NAD, VS as above Resp: normal respiratory effort, lungs clear to auscultation CV: RRR, no murmur, Extremities: Moves all extremities, no edema Neuro: A&O x3, Results & Data Results & Data Vital Signs (Past 12 Hours) Vital Signs Temp Pulse Pulse Pulse Resp BP Pulse Ox 10/21/24 12:27 60 14 160/80 H 95 10/21/24 07:37 98.2 F 59 L 18 160/78 H 97 10/21/24 07:02 59 L O2 Del Method 10/21/24 12:27 Room Air 10/21/24 07:37 Room Air 10/21/24 07:02 Laboratory Results cbc, chemistry abd troponin reviewed PG Care Time/CCT Total # of Minutes Spent Total Time Spent with Patient: Total time spent is greater than 50% in coordination of care (as documented) at patient's floor/unit and/or counseling patient: Coding Level of Care Code 64349 SUB INP/OBS CARE 2/35MIN Diagnoses Exertional chest pain R07.9 Hypertension I10
[2024-10-21] MEDS: MIDAZOLAM HCL 1 MG/ML 2ML VIAL ONE ×2 (15:47→15:50)
[2024-10-21] MEDS: IODIXANOL (VISIPAQUE) 320 MG/ML 100ML IV ONE (15:47)
[2024-10-21] MEDS: niCARdipine 2,000 MCG/20 ML SYR ONE (15:47)
[2024-10-21] MEDS: NITROGLYCERIN/D5W 100MCG/ML 20ML SYR ONE (15:47)
[2024-10-21] MEDS: HEPARIN (PORCINE) 1000 UNIT/ML 10 ML (CATH LAB USE ONLY) ONE (15:50)
[2024-10-21] MEDS: OPTIRAY 350 ONE (15:50)
[2024-10-21] MEDS: CLOPIDOGREL BISULFATE 300 MG TAB ONE (15:59)
--- NOTE | 2024-10-21 15:59 | Post Anesthesia Assessment ---
Date of Service October 21, 2024 Post Sedation Assessment Vital Signs Temp Pulse Pulse Pulse Resp BP BP 10/21/24 12:27 60 14 160/80 H 10/21/24 07:37 98.2 F 59 L 18 160/78 H 10/21/24 07:02 59 L 10/21/24 02:43 97.5 F L 59 L 16 161/82 H 10/21/24 00:54 71 10/20/24 23:56 65 14 180/82 H 10/20/24 23:56 10/20/24 23:20 98.1 F 59 L 18 10/20/24 23:00 70 17 175/84 H 10/20/24 22:30 71 16 158/83 H 10/20/24 21:03 68 19 184/88 H 10/20/24 20:44 72 10/20/24 20:00 68 18 196/97 H 10/20/24 19:00 66 18 189/96 H 10/20/24 18:46 73 152/91 H 10/20/24 17:51 66 20 188/95 H 10/20/24 17:30 68 19 170/97 H 10/20/24 17:24 64 14 10/20/24 16:41 70 10/20/24 16:37 69 14 204/90 H 10/20/24 16:37 10/20/24 16:21 97.5 F L 66 18 186/83 H Pulse Ox Pulse Ox O2 Del Method O2 Del Method O2 Flow Rate 10/21/24 12:27 95 Room Air 10/21/24 07:37 97 Room Air 10/21/24 07:02 10/21/24 02:43 96 Room Air 10/21/24 00:54 10/20/24 23:56 96 Room Air 10/20/24 23:56 97 Room Air 10/20/24 23:20 94 Room Air 10/20/24 23:00 95 Room Air 10/20/24 22:30 95 Room Air 10/20/24 21:03 97 10/20/24 20:44 10/20/24 20:00 99 Room Air 10/20/24 19:00 98 Room Air 10/20/24 18:46 97 Room Air 10/20/24 17:51 96 10/20/24 17:30 97 10/20/24 17:24 97 10/20/24 16:41 10/20/24 16:37 99 Room Air 10/20/24 16:37 98 Room Air 0 10/20/24 16:21 97 Room Air Recovery Score Activity: Moves 4 extremities Respiration: Deep Breath/Cough Circulation: +/-20% PreAnes Value Consciousness: Fully Awake Oxygen Saturation: O2 needed for >90% Discharge Sedation Level of Care: Fast Track Phase II
[2024-10-21] MEDS: ATORVASTATIN 40 MG TAB PO SCH (18:09)
--- NOTE | 2024-10-21 18:15 | Cardiac Catheterization ---
[facility] Data: [place] Cardiac Status Clinical evaluation leading to the procedure CAD Presenation: Unstable angina Anginal Classification: CCS III Diagnostic Physicians Name: Sivakumar Yarbrough MD Closure Device Recommendations: PCI without planned CABG Cardiac Cath Procedure Full Procedure Date October 21, 2024 Pre-Procedure Diagnosis Pre-Procedure Diagnosis: Angina AUC Score AUC Score: 7 Post-Procedure Diagnosis Post-Procedure Diagnosis: Severe CAD, Successful PCI and Normal Intracardiac Pressures Procedure(s) Performed Procedure(s) Performed: Coronary Angiography, Left Heart Cath, Drug Eluting Stent and Ultrasound Guided Vascular Access [employer] Specialist Sivakumar Yarbrough MD [employer] Teacher(s) Jorg[place] Estimated Blood Loss Estimated Blood Loss: 25 Medication(s) Medication(s): Clopidogrel, Fentanyl, Heparin, Nicardipine, Nitroglycerin and Versed Summary of Findings Indication: Accelerating angina, ASCVD risk factors, coronary artery calcification Access: 6 Fr slender right radial artery under ultrasound guidance Catheters: Lasara, EBU 3.5 guide Findings: LM -normal caliber, no significant disease LAD -medium caliber, proximal luminal irregularities. 80-90% mid segment stenosis. Distal vessel tortuous and wraps around apex without significant disease. Medium high diagonal without significant disease. Circumflex -large caliber, patient is an earlymid segment secondary to angulation. No significant disease and AV groove circumflex. Medium caliber left PLB without significant disease RCA -dominant, medium caliber, mild diffuse mid segment disease up to 30%, 60% distal disease. Small PDA/PLB without significant disease. LVEDP -4 -- PCI -- Antithrombotic therapy: Heparin, clopidogrel Procedure: Left main cannulated with EBU 3.5 guide Pre-procedure flow SOLO 3 BMW wire passed across lesion into distal vessel Mid LAD lesion predilated with 2.5 compliant balloon Dilated lesion stented with 3.0 x 18 mm Cole drug-eluting stent Stent post-dilated with 3.5 noncompliant balloon IC vasodilators administered for spasm Post procedure SOLO 3 flow, stent well expanded with minimal residual stenosis and no apparent cardiac complications. Arterial Closure: TR band Summary: 1. Multivessel coronary artery disease - 80-90% mid LAD stenosis 60% distal RCA stenosis 2. Normal intracardiac filling pressure 3. Successful PCI of mid LAD with single drug-eluting stent (3.0 x 18 mm Cole; postdilated with 3.5 NC). Recommendations: To PCU for continued monitoring Loaded with clopidogrel 600 mg in [place] Continue dual-antiplatelet therapy for at least 6 months Continue statin, and ASCVD risk factor modification Recommend medical management of residual RCA disease. If refractory angina in the future distal RCA does appear amenable to PCI. Hemodynamics Rest Ao:: 148/65/100 Final Ao: 126/68/98 LV: 100/4 Recommendations Recommendations: PCI without planned CABG Radiation Exposure (mGy) 379 Contrast (mls) 70 Anesthesia Moderate 2627-5224 Procedural Complication(s) None Disposition PCU I attest to the content of the Intraoperative Record and any orders documented therein. Any exceptions are noted below. [facility] Card Cath Procedure Codes Cardiac Catheterization Procedure 1: Cardiovascular Cath Procedures: 30703 Coronaries and LHC (+/-LV) Therapeutic Services & Ancillary Procedure 1: Cardiovascular Tx and Anc Procedures: 66154 Ultrasonic Guidance Vascular Access Moderate Sedation Procedure 1: Sedation/Anesthesia: 45678 Mod Sedation by the same physician;Init15 Min Child Age 5 & Up Procedure 2: Sedation/Anesthesia: 08495 Mod Sedation by the same physician; Ea [id number] Minutes Stenting Procedure 1: Cardiovascular Stent Procedures: 61609 Perc transcatheter placement of i ntracoronary stent(s), with ang PG Care Time/CCT Total # of Minutes Spent Total Time Spent with Patient: Total time spent is greater than 50% in coordination of care (as documented) at patient's floor/unit and/or counseling patient:
[2024-10-21 18:24] VITALS: RESP 18
[2024-10-21] MEDS: LATANOPROST 0.005% OP SOLN 2.5 ML BTL OPB SCH (19:44)
[2024-10-22] MEDS: SODIUM CHLORIDE 0.65% NA SOLN 45 ML (OCEAN) ONE (04:57)
--- NOTE | 2024-10-22 07:48 | Cardiology Progress Note ---
Date of Service October 22, 2024 Assessment & Plan (1) Angina pectoris, crescendo: Plan: s/p prox LAD stent (2) Hypertension: (3) Hypercholesterolemia: (4) Family history of premature CAD: (5) Early onset menopause: Plan ASA plavix metorprolol and stat no dental work or other elective procedures f/u with me in 2weeks cardiac rehab ok to use Afrin nasal spray for congestion no psuedofed ETOH IN MODERATION 1-2 drinks or less daily ok for DC later this am Admission and Anticipated Discharge Date Admission Date: October 20, 2024 Subjective c/o stuffy nose and congestion right wrist arm pain better Tele SB/SR 50-60s Review of Systems Review of Systems: All systems reviewed & are unremarkable except as noted in HPI & below Results & Data Vital Signs (Past 12 Hours) Vital Signs Temp Pulse Pulse Resp BP Pulse Ox O2 Del Method 10/22/24 03:54 36.4 C L 62 18 160/69 H 97 Room Air 10/21/24 22:56 66 10/21/24 22:53 36.4 C L 61 18 162/76 H 95 Room Air Laboratory Results Current Inpatient Medications Acetaminophen (Acetaminophen 325 Mg Tab) 650 mg PO Q4H PRN PRN Reason: Pain or Fever Stop: 11/19/24 23:55 Al Hydrox/Mg Hydrox/Simethicone (Aluminum/Magnesium Susp 30 Ml Udc) 15 ml PO Q4H PRN PRN Reason: Dyspepsia Stop: 11/19/24 23:55 Aspirin (Aspirin 81 Mg Ectab) 81 mg PO [facility] Stop: 11/20/24 08:59 Last Admin: 10/21/24 08:33 Dose: 81 mg Atorvastatin Calcium (Atorvastatin 40 Mg Tab) [facility] Stop: 11/20/24 17:44 Last Admin: 10/21/24 18:09 Dose: 40 mg Clopidogrel Bisulfate (Clopidogrel Bisulfate 75 Mg Tab) 75 mg PO [facility] Stop: 11/21/24 08:59 Fluticasone Propionate (Fluticasone Propionate Na Spr 16 Gm Btl) 2 sprays NA BID [facility] Stop: 11/21/24 08:59 Latanoprost (Latanoprost 0.005% Op Soln 2.5 Ml Btl) 1 drops OPB HS [facility] Stop: 11/20/24 20:59 Last Admin: 10/21/24 19:44 Dose: 1 drops Melatonin (Melatonin 3 Mg Tab) 3 mg PO HS PRN PRN Reason: Sleep Stop: 11/19/24 23:55 Metoprolol Succinate (Metoprolol Succ 25mg Ext Rel Tab) 25 mg PO QAM [facility] Stop: 11/20/24 09:59 Last Admin: 10/21/24 11:21 Dose: 25 mg Ondansetron HCl (Ondansetron Inj 2 Mg/Ml 2 Ml Vial) 4 mg IV Q6H PRN PRN Reason: Nausea Stop: 11/19/24 23:55 Polyethylene Glycol (Polyethylene (Miralax) 17 Gm Pack) 17 gm PO DAILY PRN PRN Reason: Constipation Stop: 11/19/24 23:55 Abnormal lab results 10/21/24 Range/Units 15:47 Activ Coag Time Kaolin 285 H (94-140) SECONDS
[2024-10-22 08:17] VITALS: BP 144/71; PULSE 65; TEMP 97.7; O2SAT 98
[2024-10-22] MEDS: OXYMETAZOLINE 0.05% 30 ML BTL NAE PRN (08:28)
[2024-10-22] MEDS: CLOPIDOGREL BISULFATE 75 MG TAB PO SCH (08:30)
[2024-10-22] MEDS: FLUTICASONE PROPIONATE NA SPR 16 GM BTL SCH (09:44)
--- NOTE | 2024-10-22 15:57 | Discharge Summary ---
<Statement entered by Myra Sánchez MD - 10/22/24 19:50> Addendum to discharge diagnoses: Coronary artery disease - treated with LAD stent Discharge Summary Date of Service October 22, 2024 Principal Dx & Hospital Course #1 = Principal Diagnosis (1) Exertional chest pain: (2) Hypertension: Plan #Exertional chest pain 79-year-old female PMHx GERD, insomnia, DJD of lumbar spine, OP, hyperlipidemia, vitamin B12 deficiency, and adenomatous polyp of colon presenting for exertional chest pain starting 6 days [employer]. ED evaluation reveals normal EKG with WNL troponin x 2, negative chest CTA for PE, and no additional abnormalities. No prior cardiac history but significant past FMHx of her father passing from sudden cardiac arrest and her brother who underwent open heart surgery; No prior history of angina or exertional symptoms. Had a stress echo ~ 1 year ago per patient which she believes was normal.CBC without leukocytosis and with stable H&H; D-dimer 500 Troponin negative x 4 S/p Cath with stent placed to LAD - initated on plavix, ASA, metoprolol and statin. F/u with cardiology and cardiac rehab. cath precautions discussed. avoid ETOH #HTN -Not on antihypertensive at baseline, reports taking blood pressures at home with systolics into the 130s. Suspect may be impacted by emotional component of being in hospital. No present chest pain, headache, or vision changes.Started on metoprolol #OP- Raloxifene - continue #Vitamin B12 deficiency- Vit B12 supp. - continue #Ocular- Latanoprost drops - continue Dispo: discharge to home today Admission HPI Per Admitting Provider 79-year-old female PMHx GERD, insomnia, DJD of lumbar spine, OP, hyperlipidemia, vitamin B12 deficiency, and adenomatous polyp of colon presenting for exertional chest pain starting 6 days [employer]. Patient reports that she walks approximately 2 miles, 4-5 times a week at baseline and has never had symptoms with such until approximately 6 days ago. Patient reports approximately 6 days ago she was on a "strolling tour" referring to her exercise of walking when she started to have what she refers to as severe indigestion in the middle of her chest. She states that this lasted for approximately 15 to 20 minutes and then was resolved whenever she sat for lunch and started to drink water. When she got back up to walk again, the symptoms did not return. Approximately 2 to 3 days [employer] she was walking again in the morning at a very comfortable pace, and did not feel that she was overexerting herself. She again developed indigestion in the middle of her chest that seem to resolve even whenever she continued to exert herself minimally. The morning of arrival, she was walking once more and after about 1 mile in, she started to have the return of symptoms in the center of her chest with an onset of "tingling in her fingertips" which was more significant on the right side than the left, but was bilateral. She denies having any diaphoresis, shortness of breath, or dizziness throughout this episode. No nausea or vomiting. She states she has never had this happen before and since it was the new onset and abnormal for her, she decided to call her PCP recommended going to the urgent care. Urgent care then recommended that the patient be further evaluated in the ED for her new onset of symptoms. She does occasionally have dizziness when standing too quickly but this is able to be resolved after pausing briefly. She admits to motion sickness as well. Patient has no current symptoms and does not experience any symptoms at rest. She did have a stress test approximately 1 year ago given her significant family history for cardiac disease. States that her father, at the age of 6868 years old, was biking and then that evening of sudden cardiac arrest. Her brother who is younger than her also has a history of open heart surgery approximately 1 year ago. She has no cardiac history, no history of HTN, and is not on antihypertensives. Patient states she is cautious with what she eats and does not have a history of GERD. Denies palpitations, cough, abdominal pain, N/V/D/C, fever/chills, URI symptoms, weakness, syncope, or falls. Patient does not smoke. ED evaluation reveals CBC without leukocytosis, stable H&H; PT/INR WNL; D-dimer 500; CMP BUN/creatinine ratio 27.1; troponin 3.8, 4.6 on repeat; CXR WNL; chest CTA no PE, mosaic attenuation of the lungs suggesting small airway or small vessel disease such as bronchiolitis obliterans; EKG NSR at 67 bpm.; Provided with 1L NSS in ED. Please see Dr. Huber's attestation for adjustments/additions to treatment plan. Discharge Exam General: NAD, VS as above Resp: normal respiratory effort, lungs clear to auscultation CV: RRR, no murmur, Abd: normal bowel sounds, non tender, no hepatosplenomegaly Extremities: Moves all extremities, no edema Neuro: A&O x3, Skin: hematoma over cath site Discharge Plan Discharge Items Patient Disposition: Home - Self-Care Reason For Visit: UNSTABLE ANGINA Discharge Diagnosis: Chest pain - s/p stent placement Condition on Discharge: Fair Activity: As commented below Activity Comment: take it easy for the next 1-2 weeks Weightbearing: Full weightbearing Non-emergency contact: Primary Care Provider and Hot Car Operator Call non-emergency contact if: you have any medication questions, your symptoms worsen, your pain is not controlled, your pain is worsening and your temperature is above 101 Follow-up/Referrals: Michele Frank MD [Primary Care Provider] - 10/28/24 11:00 am (follow up within one week Scheduled 10/28/24 at 11:00 with Tova Mejia PA-C) Aylin Castorena DO [Physician] - (follow up in 2 weeks Office will call pt to schedule) Diet: Heart Healthy Addtl Attending Provider Instructions: Ms. Hernandez You were hospitalized after having chest pain with activity. You underwent heart catheterization with Dr. Yarbrough that showed blockage requiring stent placement. You were started on metoprolol, statin (cholesterol medicine), aspirin 81mg and plavix to prevent further cardiac needs. Make sure you are limiting your alcohol intake. Recommend max 1-2 drinks per day. You should follow up with your PCP within one week. Follow up with Dr. Prater in 2 weeks. You also will be referred to cardiac rehab. Here are recommendations for post cath: ACTIVITY RECOMMENDATIONS: Excess manipulation of the wrist should be avoided for the next 24-48 hours. * No lifting over 2 pounds (approximately a 1/2 gallon of milk) with the utilized arm for 24 hours. * No strenuous activity such as bowling or tennis for 3 days. * Keep the site of the procedure covered with a bandage for 24 hours. *You may shower the day after the procedure. Do not take a tub bath or submerge the puncture site in water for the next 3 days. *Do not operate any motorized equipment for 3 days. SPECIAL CARE INSTRUCTIONS: The site may be slightly bruised and sore following your procedure. Should any of the following occur, contact the Dr. who performed your procedure. 1. Redness/inflammation, swelling, chills, or fever, or colored drainage at procedure site within 3-7 days after your procedure. 2. Coldness, discoloration, ongoing numbness, severe pain, or swelling. Expect mild tingling of hand and tenderness at the puncture site for up to three days. If this persists beyond three days, or other symptoms develop, notify the Dr. who performed your procedure. BLEEDING: If the procedure site on your wrist begins to bleed, do not panic 1. Place 1 or 2 fingers firmly just slightly above the insertion site to stop the bleeding. You may be able to feel your pulse as you hold pressure. 2. Lift your finger after 5 minutes to see if the bleeding has stopped. 3. Once the bleeding has stopped, gently wipe the wrist area clean with a bandage. * If the bleeding from your wrist does not stop after 10 minutes, or if there is a large amount of bleeding or spurting, call 911 (do not drive yourself to the hospital). SKIN IRRITATION: * You may experience some redness and/or swelling in the area where radiation was administered. If any skin irritation occurs, please contact your family rebecca [email or web address]. CONTACT YOUR PRIMARY CARE PROVIDER if you experience any of the following: Shortness of breath or difficulty breathing Fevers or chills Feeling tired with normal activity or experiencing dizziness or fainting Difficulty following your treatment plan, or difficulty taking medications CALL 911 OR GO TO THE EMERGENCY DEPARTMENT if you experience any of the following: Severe abdominal pain or nausea/vomiting Severe chest pain, or chest pain that radiates (moves) to your jaw or arm Sudden, severe shortness of breath or difficulty breathing Thank you for allowing us to participate in your care. Pending Studies at Discharge: No Stand-Alone Forms: My [employer], Smoking Cessation Medications and DC Order Prescriptions: New atorvastatin 40 mg Tablet 40 mg PO QAM Qty: 30 0RF clopidogrel 75 mg Tablet 75 mg PO QAM Qty: 30 0RF aspirin 81 mg Tablet,Delayed Release (Dr/Ec) 81 mg PO QAM Qty: 30 0RF metoprolol succinate 25 mg Tablet Extended Release 24 Hr 25 mg PO QAM Qty: 30 0RF Continued pimecrolimus 1 % cream 1 applic topical BID PRN (Reason: Rash) Qty: 30 1RF Rx Instructions: Apply to areas of the face twice daily as directed cholecalciferol (vitamin D3) 125 mcg (5,000 unit) capsule 125 mcg PO DAILY benzonatate 100 mg capsule 100 mg PO BID PRN (Reason: cough) 30 Days Qty: 60 6RF cyanocobalamin (vitamin B-12) [Vitamin B-12] 1,000 mcg Tablet 1,000 mcg PO HS latanoprost 0.005 % drops 1 drp OPB HS calcium carbonate [Calcium 600] 600 mg calcium (1,500 mg) Tablet 600 mg PO HS ciclopirox 8 % solution 1 applic topical DAILY PRN (Reason: DIRECTED) Rx Instructions: Apply to nails once a day ipratropium bromide 42 mcg (0.06 %) spray,non-aerosol 2 spray intranasal TID PRN (Reason: DIRECTED) Rx Instructions: administer into each nostril raloxifene [Evista] 60 mg tablet 60 mg PO HS Discontinued ibuprofen 600 mg tablet 600 mg PO Q6H PRN (Reason: Pain) Qty: 360 1RF Discharge Orders: Discharge Order (Routine); Ordered 10/22/24 Ordered By: Felipa Maguire Admission Data Admit Date/Time: 10/20/24 21:30 Attending Provider: Myra Sánchez Admit Provider: Kinza Huber Primary Care Provider: Michele Frank Other Providers: Kinza Huber; Aylin Castorena Other Interventions: Discharge Summary Assessment (RN) Last Done: 10/22/24 10:09 Hospital Stay Data Consultations 10/20/24 20:57 ED Decision to Admit Stat 10/20/24 23:56 Consult Cardiology Routine 10/21/24 17:46 Consult Cardiac Rehabilitation Routine Procedures Performed Operation Date: 10/21/24 12:00 Actual Procedures p Cineradiography w/Routine Exam - Sivakumar Yarbrough MD p Cath, Left with Cors and Vent - Sivakumar Yarbrough MD s Drug Eluting Stent SGl Vessel - Sivakumar Yarbrough MD Diagnostic Imagining Performed 10/20/24 17:47 CT angio chest PE protocol Stat 10/21/24 11:32 CL Cath Imgs for PACS use only Routine Pending Results Patient Have Any Pending Studies at Discharge: No Discharge Instructions Given to Patient (Per Discharging Provider) Ms. David Aquino were hospitalized after having chest pain with activity. You underwent heart catheterization with Dr. Yarbrough that showed blockage requiring stent placement. You were started on metoprolol, statin (cholesterol medicine), aspirin 81mg and plavix to prevent further cardiac needs. Make sure you are limiting your alcohol intake. Recommend max 1-2 drinks per day. You should follow up with your PCP within one week. Follow up with Dr. Prater in 2 weeks. You also will be referred to cardiac rehab. Here are recommendations for post cath: ACTIVITY RECOMMENDATIONS: Excess manipulation of the wrist should be avoided for the next 24-48 hours. * No lifting over 2 pounds (approximately a 1/2 gallon of milk) with the utilized arm for 24 hours. * No strenuous activity such as bowling or tennis for 3 days. * Keep the site of the procedure covered with a bandage for 24 hours. *You may shower the day after the procedure. Do not take a tub bath or submerge the puncture site in water for the next 3 days. *Do not operate any motorized equipment for 3 days. SPECIAL CARE INSTRUCTIONS: The site may be slightly bruised and sore following your procedure. Should any of the following occur, contact the Dr. who performed your procedure. 1. Redness/inflammation, swelling, chills, or fever, or colored drainage at procedure site within 3-7 days after your procedure. 2. Coldness, discoloration, ongoing numbness, severe pain, or swelling. Expect mild tingling of hand and tenderness at the puncture site for up to three days. If this persists beyond three days, or other symptoms develop, notify the Dr. who performed your procedure. BLEEDING: If the procedure site on your wrist begins to bleed, do not panic 1. Place 1 or 2 fingers firmly just slightly above the insertion site to stop the bleeding. You may be able to feel your pulse as you hold pressure. 2. Lift your finger after 5 minutes to see if the bleeding has stopped. 3. Once the bleeding has stopped, gently wipe the wrist area clean with a bandage. * If the bleeding from your wrist does not stop after 10 minutes, or if there is a large amount of bleeding or spurting, call 911 (do not drive yourself to the hospital). SKIN IRRITATION: * You may experience some redness and/or swelling in the area where radiation was administered. If any skin irritation occurs, please contact your family physician. CONTACT YOUR PRIMARY CARE PROVIDER if you experience any of the following: Shortness of breath or difficulty breathing Fevers or chills Feeling tired with normal activity or experiencing dizziness or fainting Difficulty following your treatment plan, or difficulty taking medications CALL 911 OR GO TO THE EMERGENCY DEPARTMENT if you experience any of the following: Severe abdominal pain or nausea/vomiting Severe chest pain, or chest pain that radiates (moves) to your jaw or arm Sudden, severe shortness of breath or difficulty breathing Thank you for allowing us to participate in your care. Total Time Total Time Spent Total Time Spent (In Minutes): Time spent day of discharge 33 minutes including direct patient care, medication reconciliation, documentation, review of labs and images, and coordination of care. discussed with cardiology Coding Level of Care Code 78717 INP/OBS DISCH >30 MIN Diagnoses Exertional chest pain R07.9 Hypertension I10
--- NOTE | 2024-10-27 10:37 | Electrocardiogram Report ---
Test Reason : Blood Pressure : */* mmHG Vent. Rate : 67 BPM Atrial Rate : 67 BPM P-R Int : 158 ms QRS Dur : 76 ms QT Int : 420 ms P-R-T Axes : 66 -1 57 degrees QTcB Int : 443 ms Normal sinus rhythm Poor R wave progression, consider anterior [place] vs. lead placement vs. LVH Abnormal ECG When compared with ECG of 20-Oct-2024 16:33, Criteria for Inferior infarct are no longer Present T wave inversion no longer evident in Inferior leads Nonspecific T wave abnormality now evident in Anterior leads Confirmed by Michele Fernandez ([id number]) on 10/27/2024 10:37:00 AM Referred By: REFERRED SELF Confirmed By: Michele Fernandez
== END 2024-10-22 10:50 | disposition home or self-care (01) ==
LOC: 2N 16:19 → ED 16:19 → SUATTDRO 21:30 → 2N 23:20 → 2S 10-21 16:53